=== PATIENT | female | born 1990 | race African-American/Black ===

== ENCOUNTER 2018-11-22 02:20 | Emergency (ER) | payer SELFPAY ==
[~2018-11-22] VITALS: Ht 157.5 cm; Wt 72.6 kg
[2018-11-22] MEDS ORDERED: PENICILLIN G BENZATHINE 2.4 MMU/4 ML DISP.SYRIN IM ONE ×2 (02:45→02:50)
[2018-11-22] MEDS ORDERED: ONDANSETRON ODT 4 MG TAB.RAPDIS SL ONE (02:45)
[2018-11-22] MEDS ORDERED: HYDROCODONE/APAP 10-325 MG TABLET PO ONE (02:45)
[2018-11-22] MEDS ORDERED: HYDROCODONE/APAP 10-325 MG TABLET ONE (02:49)
[2018-11-22] MEDS ORDERED: ONDANSETRON ODT 4 MG TAB.RAPDIS ONE (02:49)
[2018-11-22 02:54] VITALS: BP 111/75
--- NOTE | 2018-11-22 02:54 | NUR ---
Patient discharged to home in stable conditon. Written and verbal after care instructions given. Patient verbalizes understanding of instructions. Ambulated from ER with stable gait. All belongings with patient.
== END 2018-11-22 02:56 | disposition home or self-care (01) ==
LOC: ER 02:24
DX: K08.89 Other specified disorders of teeth and supporting structures (principal)
CPT/HCPCS: A4663; Q0162